=== PATIENT | female | born 1945 | race Hispanic/Latino ===

== ENCOUNTER 2021-11-27 19:29 | Inpatient (IN) | payer MEDICARE ==
[~2021-11-27] VITALS: Ht 165.1 cm; Wt 61.9 kg
[~2021-11-27 19:29] MED LIST: BENAZEPRIL-HCT1 EAC5 PO; TRAMADOL HCL50 M1 PO; Z.0.CLONAZEPAM1 MG PO; Z.0.ENALAPRIL MALEA2 PO; Z.0.OMEPRAZOLE40 MG PO
[2021-11-27 20:20] LABS: BASOPHILS # (AUTO) 0.1 (0.0-0.1); BASOPHILS % 0.7 % (0.0-1.0); EOSINOPHILS % 0.2 % (0.0-6.0); HEMATOCRIT 45.8 % (34.2-44.1); HEMOGLOBIN 15.3 g/dL (12.0-16.0); LYMPHOCYTES % 8.2 % (18.0-39.1); MEAN CORPUSCULAR HEMOGLOBIN 32.4 pg (28-32); MEAN CORPUSCULAR HGB CONC 33.4 g/dL (31-35); MONOCYTES # (AUTO) 0.7 (0.2-0.8); NEUTROPHILS # (AUTO) 10.4 (2.1-6.9); NEUTROPHILS % 84.4 % (38.7-80.0); PLATELET COUNT 218 x10e3/uL (140-360); RED BLOOD COUNT 4.72 x10e6/uL (3.6-5.1); RED CELL DISTRIBUTION WIDTH 12.3 % (11.7-14.4)
[2021-11-27 20:39] LABS: ALANINE AMINOTRANSFERASE 15 IU/L (0-55); ALBUMIN 3.2 g/dL (3.5-5.0); ALBUMIN/GLOBULIN RATIO 0.9 (0.8-2.0); ALKALINE PHOSPHATASE 63 IU/L (40-150); ANION GAP 15.1 mmol/L (8-16); BLOOD UREA NITROGEN 27 mg/dL (7-26); BUN/CREATININE RATIO 13 (6-25); CALCIUM 9.4 mg/dL (8.4-10.2); CARBON DIOXIDE 24 mmol/L (22-29); CHLORIDE 106 mmol/L (98-107); CREATINE KINASE 138 IU/L (29-168); CREATININE, SERUM 2.06 mg/dL (0.57-1.11); EST GLOMERULAR FILTRATION RATE 23 ML/MIN (60-); GLUCOSE 141 mg/dL (74-118); POTASSIUM 3.1 mmol/L (3.5-5.1); SODIUM 142 mmol/L (136-145)
[2021-11-27] MEDS ORDERED: SODIUM CHLORIDE 0.9% 1000ML 1,000 ML IV SCH (22:30)
[2021-11-27] MEDS ORDERED: Morphine 4mg Syringe 4 MG/ML INJ IV PRN (22:30)
[2021-11-27] MEDS: CIPROFLOXACIN 400 MG/D5W 200ML 200 ML IV SCH (23:08)
[2021-11-28] VITALS (11 sets, daily range): BP systolic 136–164; BP diastolic 70–93
[2021-11-28] MEDS: METRONIDAZOLE 500MG/NS 100ML 100 ML IV SCH ×3 (01:07→22:27)
[2021-11-28] MEDS: TRAMADOL HCL 50 MG TAB PO PRN (01:10)
[2021-11-28] MEDS ORDERED: FOSAMAX70 MG PO (02:32)
[2021-11-28] MEDS ORDERED: AMLODIPINE BESY10 MG PO (02:32)
[2021-11-28] MEDS ORDERED: VITAMIN D350 MCG PO (02:32)
[2021-11-28] MEDS ORDERED: NEURONTIN300 MG PO (02:32)
[2021-11-28] MEDS ORDERED: CELEBREX200 MG PO (02:32)
[2021-11-28] MEDS: SOD CHL 0.45%/POT CHL 20MEQ 1,000 ML IV SCH ×3 (02:40→19:28)
[2021-11-28 02:57] LABS: CLARITY,URINE SL CLOUDY (CLEAR); COLOR,URINE YELLOW (YELLOW); KETONES,URINE NEGATIVE (NEGATIVE); LEUKOCYTE ESTERASE ,URINE NEGATIVE (NEGATIVE); NITRITE,URINE NEGATIVE (NEGATIVE); PROTEIN,URINE DIPSTICK 1+ (NEGATIVE); URINE UROBILINOGEN 0.2 mg/dL (0.2 - 1)
[2021-11-28 03:04] LABS: AMORPHOUS SEDIMENT,URINE FEW (FEW); BACTERIA,URINE FEW /HPF; EPITHELIAL CELLS,URINE FEW /LPF; RBC,URINE 0-5 /HPF (0-5); WBC,URINE (MAN) 0-5 /HPF (0-5)
[2021-11-28] MEDS: HYDROCODONE/APAP 5MG-325MG TAB PO PRN ×2 (04:50→20:04)
[2021-11-28 07:16] LABS: BASOPHILS % 0.2 % (0.0-1.0); EOSINOPHILS % 0.1 % (0.0-6.0); HEMATOCRIT 40.6 % (34.2-44.1); HEMOGLOBIN 13.6 g/dL (12.0-16.0); LYMPHOCYTES # (AUTO) 0.9 (1.0-3.2); LYMPHOCYTES % 9.9 % (18.0-39.1); MEAN CORPUSCULAR HEMOGLOBIN 32.5 pg (28-32); MEAN CORPUSCULAR HGB CONC 33.5 g/dL (31-35); MEAN CORPUSCULAR VOLUME 97.1 fL (81-99); MONOCYTES # (AUTO) 0.7 (0.2-0.8); NEUTROPHILS # (AUTO) 7.3 (2.1-6.9); NEUTROPHILS % 81.4 % (38.7-80.0); PLATELET COUNT 175 x10e3/uL (140-360); RED BLOOD COUNT 4.18 x10e6/uL (3.6-5.1); RED CELL DISTRIBUTION WIDTH 12.4 % (11.7-14.4)
[2021-11-28 07:35] LABS: ALBUMIN 2.7 g/dL (3.5-5.0); ALBUMIN/GLOBULIN RATIO 0.9 (0.8-2.0); ANION GAP 12.8 mmol/L (8-16); CALCIUM 8.1 mg/dL (8.4-10.2); CREATININE, SERUM 1.72 mg/dL (0.57-1.11); POTASSIUM 3.8 mmol/L (3.5-5.1)
[2021-11-28 07:50] LABS: CREATINE KINASE 53 IU/L (29-168)
[2021-11-28 08:00] LABS: CREATINE KINASE MB < 1.00 ng/mL (0-4.3)
[2021-11-28] MEDS: CIPROFLOXACIN 400 MG/D5W 200ML 200 ML IV SCH ×2 (09:03→20:00)
[2021-11-28] MEDS: ONDANSETRON HCL INJ 2MG/ML 2ML 2 MG/ML VIAL IV PRN ×2 (10:50→23:25)
[2021-11-28 15:01] LABS: CREATINE KINASE 54 IU/L (29-168)
[2021-11-28] MEDS ORDERED: CITRATE OF MAGNESIA 300ML BOTTLE PO ONE (22:15)
[2021-11-28] MEDS ORDERED: BISACODYL 5 MG TAB EC PO ONE (22:15)
[2021-11-28] MEDS ORDERED: BISACODYL 5 MG TAB EC PO PRN (23:00)
[2021-11-29] VITALS (8 sets, daily range): BP systolic 119–175; BP diastolic 75–100
[2021-11-29] MEDS: SOD CHL 0.45%/POT CHL 20MEQ 1,000 ML IV SCH ×2 (04:58→16:57)
[2021-11-29] MEDS ORDERED: CITRATE OF MAGNESIA 300ML BOTTLE PO ONE (05:00)
[2021-11-29 05:04] LABS: BASOPHILS % 0.3 % (0.0-1.0); HEMATOCRIT 40.1 % (34.2-44.1); HEMOGLOBIN 13.3 g/dL (12.0-16.0); LYMPHOCYTES # (AUTO) 1.1 (1.0-3.2); LYMPHOCYTES % 9.9 % (18.0-39.1); MEAN CORPUSCULAR HEMOGLOBIN 32.7 pg (28-32); MEAN CORPUSCULAR HGB CONC 33.2 g/dL (31-35); MEAN CORPUSCULAR VOLUME 98.5 fL (81-99); MONOCYTES # (AUTO) 0.7 (0.2-0.8); MONOCYTES % 6.7 % (4.4-11.3); NEUTROPHILS # (AUTO) 8.8 (2.1-6.9); NEUTROPHILS % 82.7 % (38.7-80.0); PLATELET COUNT 154 x10e3/uL (140-360); RED BLOOD COUNT 4.07 x10e6/uL (3.6-5.1); RED CELL DISTRIBUTION WIDTH 12.4 % (11.7-14.4)
[2021-11-29 05:37] LABS: ANION GAP 11.6 mmol/L (8-16); CALCIUM 8.2 mg/dL (8.4-10.2); CREATININE, SERUM 1.37 mg/dL (0.57-1.11); POTASSIUM 3.6 mmol/L (3.5-5.1)
[2021-11-29] MEDS: ONDANSETRON HCL INJ 2MG/ML 2ML 2 MG/ML VIAL IV PRN (05:40)
[2021-11-29 06:20] LABS: MAGNESIUM 3.1 MG/DL (1.3-2.1); PHOSPHORUS 2.4 MG/DL (2.3-4.7)
[2021-11-29] MEDS: CIPROFLOXACIN 400 MG/D5W 200ML 200 ML IV SCH ×2 (09:00→21:08)
[2021-11-29] MEDS: METRONIDAZOLE 500MG/NS 100ML 100 ML IV SCH (11:59)
[2021-11-29] MEDS ORDERED: PROPOFOL IV EMULSION 10 MG/ML 20 ML VIAL ONE (17:30)
[2021-11-29] MEDS ORDERED: LIDOCAINE HCL 2% LOCAL INJ 5 ML SDV VIAL INJ ONE (17:30)
[2021-11-29] MEDS ORDERED: HYOSCYAMINE SULFATE 0.5 MG/ML INJ ONE (17:30)
[2021-11-29] MEDS ORDERED: MIDAZOLAM HCL 2 MG/2 ML VIAL ONE (17:48)
[2021-11-29] MEDS ORDERED: FENTANYL CITRATE/PF 100MCG/2 ML INJ ONE (17:48)
[2021-11-29 19:33] LABS: WBC,FECAL (FECAL LACTOFERRIN) POSITIVE (NEGATIVE)
[2021-11-29] MEDS: HYDROCODONE/APAP 5MG-325MG TAB PO PRN (21:09)
[2021-11-30] VITALS (8 sets, daily range): BP systolic 135–189; BP diastolic 65–99
[2021-11-30] MEDS: METRONIDAZOLE 500MG/NS 100ML 100 ML IV SCH ×3 (00:07→23:00)
[2021-11-30] MEDS: CLONAZEPAM 1 MG TAB PO PRN ×2 (00:10→23:00)
[2021-11-30] MEDS: SOD CHL 0.45%/POT CHL 20MEQ 1,000 ML IV SCH ×3 (02:07→20:58)
[2021-11-30] MEDS: ONDANSETRON HCL INJ 2MG/ML 2ML 2 MG/ML VIAL IV PRN (04:37)
[2021-11-30] MEDS: ACETAMINOPHEN 325 MG TAB PO PRN ×2 (04:38→16:13)
[2021-11-30] MEDS: CIPROFLOXACIN 400 MG/D5W 200ML 200 ML IV SCH ×2 (09:00→20:55)
[2021-11-30 14:12] LABS: C DIFFICILE TOXIN A&B AMP PROB NEGATIVE (NEGATIVE)
[2021-11-30] MEDS: TRAMADOL HCL 50 MG TAB PO PRN (16:13)
[2021-11-30] MEDS: METOPROLOL TARTRATE 50 MG TAB PO SCH (17:35)
[2021-11-30] MEDS: HYDRALAZINE HCL 25 MG TAB PO PRN (20:55)
[2021-12-01] VITALS (7 sets, daily range): BP systolic 162–176; BP diastolic 79–94
[2021-12-01] MEDS: HYDRALAZINE HCL 25 MG TAB PO PRN ×3 (00:38→20:31)
[2021-12-01] MEDS: ACETAMINOPHEN 325 MG TAB PO PRN ×2 (03:00→10:15)
[2021-12-01] MEDS: TRAMADOL HCL 50 MG TAB PO PRN ×2 (03:00→11:07)
[2021-12-01] MEDS: METOPROLOL TARTRATE 50 MG TAB PO SCH ×2 (10:15→16:33)
[2021-12-01] MEDS: CIPROFLOXACIN 400 MG/D5W 200ML 200 ML IV SCH ×2 (11:13→20:26)
[2021-12-01] MEDS: SOD CHL 0.45%/POT CHL 20MEQ 1,000 ML IV SCH (11:13)
[2021-12-01] MEDS: METRONIDAZOLE 500MG/NS 100ML 100 ML IV SCH ×2 (12:57)
[2021-12-01] MEDS: SODIUM CHLORIDE 0.9% 1000ML 1,000 ML IV SCH (15:22)
[2021-12-01] MEDS ORDERED: SODIUM CHLORIDE 0.9% 100 ML ONE (16:44)
[2021-12-01] MEDS ORDERED: IOPAMIDOL 370 MG/ML 100 ML INFUS..BTL INJ ONE (16:44)
[2021-12-01] MEDS: HYDROCODONE/APAP 5MG-325MG TAB PO PRN (20:08)
[2021-12-01] MEDS: CLONAZEPAM 1 MG TAB PO PRN (20:26)
[2021-12-02] VITALS: BP 171/89
[2021-12-02] MEDS: TRAMADOL HCL 50 MG TAB PO PRN ×3 (00:23→12:37)
[2021-12-02] MEDS: SODIUM CHLORIDE 0.9% 1000ML 1,000 ML IV SCH ×2 (00:33→05:56)
[2021-12-02] MEDS: ACETAMINOPHEN 325 MG TAB PO PRN ×3 (03:47→19:53)
[2021-12-02 04:00] VITALS: BP 163/88
[2021-12-02 06:43] LABS: BASOPHILS % 0.5 % (0.0-1.0); EOSINOPHILS # (AUTO) 0.1 (0.0-0.4); EOSINOPHILS % 1.4 % (0.0-6.0); HEMATOCRIT 38.8 % (34.2-44.1); HEMOGLOBIN 13.2 g/dL (12.0-16.0); LYMPHOCYTES # (AUTO) 1.4 (1.0-3.2); LYMPHOCYTES % 23.1 % (18.0-39.1); MEAN CORPUSCULAR HEMOGLOBIN 32.4 pg (28-32); MEAN CORPUSCULAR VOLUME 95.3 fL (81-99); MONOCYTES # (AUTO) 0.6 (0.2-0.8); MONOCYTES % 9.9 % (4.4-11.3); NEUTROPHILS # (AUTO) 3.8 (2.1-6.9); NEUTROPHILS % 64.6 % (38.7-80.0); PLATELET COUNT 191 x10e3/uL (140-360); RED BLOOD COUNT 4.07 x10e6/uL (3.6-5.1)
[2021-12-02 07:16] LABS: ALBUMIN 2.9 g/dL (3.5-5.0); ANION GAP 11.6 mmol/L (8-16); CALCIUM 8.5 mg/dL (8.4-10.2); CREATININE, SERUM 0.94 mg/dL (0.57-1.11); POTASSIUM 3.6 mmol/L (3.5-5.1)
[2021-12-02 08:08] VITALS: BP 170/86
[2021-12-02 08:40] VITALS: BP 170/86
[2021-12-02] MEDS: CIPROFLOXACIN 400 MG/D5W 200ML 200 ML IV SCH ×2 (09:32→19:54)
[2021-12-02] MEDS: METOPROLOL TARTRATE 50 MG TAB PO SCH ×2 (09:33→16:13)
[2021-12-02] MEDS: IRON SUCROSE 100 MG in SODIUM CHLORIDE 0.9% 100 ML 100 ML IV SCH (10:00)
[2021-12-02] MEDS: ISOSORBIDE MONONITRATE 30 MG TAB CR PO SCH ×2 (10:56→16:12)
[2021-12-02] MEDS: AMLODIPINE BESYLATE 10 MG TAB PO SCH (10:56)
[2021-12-02] MEDS: METRONIDAZOLE 500MG/NS 100ML 100 ML IV SCH ×2 (12:42→23:00)
[2021-12-02] MEDS: Morphine 4mg Syringe 4 MG/ML INJ IV PRN ×2 (14:16→23:19)
[2021-12-02] MEDS: CLONAZEPAM 1 MG TAB PO PRN ×2 (14:23→19:53)
[2021-12-02 15:58] VITALS: BP 147/80
[2021-12-02] MEDS: PENTOXIFYLLINE 400 MG TAB CR PO SCH (16:13)
[2021-12-02 20:00] VITALS: BP 167/92
[2021-12-02] MEDS: ONDANSETRON HCL INJ 2MG/ML 2ML 2 MG/ML VIAL IV PRN (23:20)
[2021-12-03] MEDS: ACETAMINOPHEN 325 MG TAB PO PRN ×2 (03:22→10:56)
[2021-12-03 04:00] VITALS: BP 151/95
[2021-12-03 08:01] VITALS: BP 147/82
[2021-12-03] MEDS: TRAMADOL HCL 50 MG TAB PO PRN (08:07)
[2021-12-03 08:20] VITALS: BP 147/82
[2021-12-03] MEDS: CIPROFLOXACIN 400 MG/D5W 200ML 200 ML IV SCH (09:04)
[2021-12-03] MEDS: PENTOXIFYLLINE 400 MG TAB CR PO SCH (09:04)
[2021-12-03] MEDS: IRON SUCROSE 100 MG in SODIUM CHLORIDE 0.9% 100 ML 100 ML IV SCH (09:05)
[2021-12-03] MEDS: ISOSORBIDE MONONITRATE 30 MG TAB CR PO SCH (09:05)
[2021-12-03] MEDS: METOPROLOL TARTRATE 50 MG TAB PO SCH (09:06)
[2021-12-03] MEDS: AMLODIPINE BESYLATE 10 MG TAB PO SCH (09:06)
[2021-12-03] MEDS ORDERED: FLAGYL375 MG (11:21)
[2021-12-03] MEDS ORDERED: CIPRO250 MG PO (11:21)
[2021-12-03] MEDS ORDERED: METRONIDAZOLE500 MG PO (11:21)
[2021-12-03] MEDS ORDERED: ONDANSETRON ODT4 MG PO (11:24)
[2021-12-03] MEDS ORDERED: LOPRESSOR25 MG PO (11:24)
[2021-12-03] MEDS ORDERED: PENTOXIFYLLINE400 MG PO (11:25)
[2021-12-03] MEDS ORDERED: ISOSORBIDE MONO30 MG PO (11:26)
[2021-12-03 12:09] VITALS: BP 153/90
== END 2021-12-03 12:30 | disposition home or self-care (01) | DRG 393 ==
LOC: ER 19:33 → ERHOLD 22:43 → MED/SURG3 11-28 00:29 → OBSVTOIN 11-28 10:13
PROVIDERS: ADMIT Internal Medicine; ATTEND Internal Medicine
PROC: 0DBM8ZX Excision of Descending Colon, Via Natural or Artificial Opening Endoscopic, Diagnostic (ICD-10-PCS; principal; 2021-11-29 18:07)
PROC: 0DBN8ZX Excision of Sigmoid Colon, Via Natural or Artificial Opening Endoscopic, Diagnostic (ICD-10-PCS; 2021-11-29 18:07)
DX: K55.1 Chronic vascular disorders of intestine (principal); N17.0 Acute kidney failure with tubular necrosis; K51.511 Left sided colitis with rectal bleeding; E86.0 Dehydration; D50.9 Iron deficiency anemia, unspecified; I16.0 Hypertensive urgency; K83.8 Other specified diseases of biliary tract; M81.0 Age-related osteoporosis without current pathological fracture; E87.6 Hypokalemia; Z90.49 Acquired absence of other specified parts of digestive tract; Z90.3 Acquired absence of stomach [part of]; Z20.822 Contact with and (suspected) exposure to COVID-19
CPT/HCPCS: 36415; 45378; 45380; 70450; 71045; 74174; 74176; 80048; 80053; 81001; 82550; 82553; 82607; 82746; 83540; 83605; 83630; 83735; 83880; 83993; 84100; 84466; 84484; 85025; 87040; 87045; 87177; 87328; 87493; 88305; 88342; 93005; 96361; 99251; 99284; G0378; J1756; J1980; J2001; J2250; J2270; J2405; J3010; J7030; J7050; Q9967; U0002

== ENCOUNTER 2022-08-23 17:30 | Emergency (ER) | payer MEDICARE ==
[~2022-08-23] VITALS: Ht 165.1 cm; Wt 61.7 kg
[~2022-08-23 17:30] MED LIST changes: +AMLODIPINE BESY10 MG PO; +CELEBREX200 MG PO; +CIPRO250 MG PO; +FLAGYL375 MG; +FOSAMAX70 MG PO; +ISOSORBIDE MONO30 MG PO; +LOPRESSOR25 MG PO; +METRONIDAZOLE500 MG PO; +NEURONTIN300 MG PO; +ONDANSETRON ODT4 MG PO; +PENTOXIFYLLINE400 MG PO; +VITAMIN D350 MCG PO
[2022-08-23] MEDS ORDERED: ACETAMINOPHEN 325 MG TAB PO ONE (17:45)
[2022-08-23 18:04] LABS: BASOPHILS % 0.4 % (0.0-1.0); EOSINOPHILS % 0.4 % (0.0-6.0); HEMATOCRIT 43.5 % (34.2-44.1); HEMOGLOBIN 13.3 g/dL (12.0-16.0); LYMPHOCYTES # (AUTO) 0.6 (1.0-3.2); MEAN CORPUSCULAR HGB CONC 30.6 g/dL (31-35); MEAN CORPUSCULAR VOLUME 107.9 fL (81-99); MONOCYTES # (AUTO) 0.3 (0.2-0.8); MONOCYTES % 3.8 % (4.4-11.3); NEUTROPHILS # (AUTO) 6.4 (2.1-6.9); NEUTROPHILS % 87.3 % (38.7-80.0); PLATELET COUNT 185 x10e3/uL (140-360); RED BLOOD COUNT 4.03 x10e6/uL (3.6-5.1); RED CELL DISTRIBUTION WIDTH 15.4 % (11.7-14.4)
[2022-08-23] MEDS ORDERED: SODIUM CHLORIDE 0.9% 1000ML 1,000 ML IV STA (18:06)
[2022-08-23 18:13] LABS: INR 1.04; PROTHROMBIN TIME 13.8 seconds (11.9-14.5)
[2022-08-23 18:14] LABS: PARTIAL THROMBOPLASTIN TIME 29.2 seconds (23.8-35.5)
[2022-08-23 18:20] LABS: ALBUMIN/GLOBULIN RATIO 0.6 (0.8-2.0); ANION GAP 17.8 mmol/L (8-16); CALCIUM 9.7 mg/dL (8.4-10.2); CREATININE, SERUM 1.4 mg/dL (0.57-1.11); POTASSIUM 3.8 mmol/L (3.5-5.1)
[2022-08-23 19:05] LABS: CLARITY,URINE SL CLOUDY (CLEAR); COLOR,URINE YELLOW (YELLOW); KETONES,URINE NEGATIVE (NEGATIVE); LEUKOCYTE ESTERASE ,URINE NEGATIVE (NEGATIVE); NITRITE,URINE POSITIVE (NEGATIVE); PROTEIN,URINE DIPSTICK TRACE (NEGATIVE); URINE UROBILINOGEN 0.2 mg/dL (0.2 - 1)
[2022-08-23 19:07] LABS: BACTERIA,URINE MANY /HPF; RBC,URINE 0-5 /HPF (0-5); WBC,URINE (MAN) 21-50 /HPF (0-5)
[2022-08-23 19:08] LABS: EPITHELIAL CELLS,URINE FEW /LPF
[2022-08-23 19:53] LABS: CREATINE KINASE MB 0.1 ng/mL (0-5.0)
[2022-08-23] MEDS ORDERED: IBUPROFEN 600 MG TAB PO STA (20:40)
[2022-08-23 23:13] VITALS: BP 106/69
== END 2022-08-23 23:00 | disposition home or self-care (01) ==
LOC: ER 18:04
DX: R53.1 Weakness (principal); N39.0 Urinary tract infection, site not specified; R62.7 Adult failure to thrive; Z20.822 Contact with and (suspected) exposure to COVID-19; R94.31 Abnormal electrocardiogram [ECG] [EKG]
CPT/HCPCS: 36415; 71045; 80053; 81001; 82550; 82553; 83605; 84484; 85025; 85610; 85730; 87086; 87186; 93005; 99284; J0696; J2543; J7030; U0002

== ENCOUNTER 2022-11-22 15:06 | Inpatient (IN) | payer MEDICARE ==
[~2022-11-22] VITALS: Ht 165.1 cm; Wt 61.7 kg
[2022-11-22] MEDS ORDERED: ONDANSETRON HCL INJ 2MG/ML 2ML 2 MG/ML VIAL IV STA (15:24)
[2022-11-22] MEDS ORDERED: ONDANSETRON HCL INJ 2MG/ML 2ML 2 MG/ML VIAL ONE (15:27)
[2022-11-22] MEDS ORDERED: LACTATED RINGER'S 1,000 ML ONE (15:27)
[2022-11-22] MEDS ORDERED: LACTATED RINGER'S 1,000 ML IV ONE (15:30)
[2022-11-22 15:38] LABS: BASOPHILS % 0.3 % (0.0-1.0); EOSINOPHILS % 0.2 % (0.0-6.0); HEMATOCRIT 42.8 % (34.2-44.1); HEMOGLOBIN 14.6 g/dL (12.0-16.0); LYMPHOCYTES # (AUTO) 1.9 (1.0-3.2); MEAN CORPUSCULAR HEMOGLOBIN 31.5 pg (28-32); MEAN CORPUSCULAR HGB CONC 34.1 g/dL (31-35); MEAN CORPUSCULAR VOLUME 92.4 fL (81-99); MONOCYTES # (AUTO) 0.4 (0.2-0.8); MONOCYTES % 6.6 % (4.4-11.3); NEUTROPHILS % 62.6 % (38.7-80.0); PLATELET COUNT 176 x10e3/uL (140-360); RED BLOOD COUNT 4.63 x10e6/uL (3.6-5.1); RED CELL DISTRIBUTION WIDTH 14.5 % (11.7-14.4)
[2022-11-22 15:57] LABS: ALBUMIN/GLOBULIN RATIO 1.1 (0.8-2.0); ANION GAP 22.9 mmol/L (8-16); CALCIUM 10.1 mg/dL (8.4-10.2); CREATININE, SERUM 1.63 mg/dL (0.57-1.11); POTASSIUM 3.9 mmol/L (3.5-5.1)
[2022-11-22 16:03] LABS: CREATINE KINASE MB 2.8 ng/mL (0-5.0)
[2022-11-22 16:08] LABS: CLARITY,URINE SL CLOUDY (CLEAR); COLOR,URINE YELLOW (YELLOW); KETONES,URINE 2+ (NEGATIVE); LEUKOCYTE ESTERASE ,URINE NEGATIVE (NEGATIVE); NITRITE,URINE NEGATIVE (NEGATIVE); PROTEIN,URINE DIPSTICK NEGATIVE (NEGATIVE); URINE UROBILINOGEN 0.2 mg/dL (0.2 - 1)
[2022-11-22 16:15] LABS: RBC,URINE 0-5 /HPF (0-5); WBC,URINE (MAN) 0-5 /HPF (0-5)
[2022-11-22 16:16] LABS: BACTERIA,URINE FEW /HPF; EPITHELIAL CELLS,URINE FEW /LPF
[2022-11-22] MEDS ORDERED: ONDANSETRON ODT8 MG PO (16:41)
[2022-11-22] MEDS ORDERED: HYDROCHLOROTHIA25 MG PO (16:41)
[2022-11-22] MEDS ORDERED: ASPIRIN81 MG PO (16:41)
[2022-11-22] MEDS ORDERED: CLONAZEPAM0.5 MG PO (16:41)
[2022-11-22] MEDS ORDERED: DIOVAN160 MG PO (16:41)
[2022-11-22] MEDS ORDERED: HYDRALAZINE HCL 20 MG/ML VIAL IV STA (17:45)
[2022-11-22] MEDS ORDERED: METOPROLOL TARTRATE 50 MG TAB PO ONE (17:45)
[2022-11-22] MEDS ORDERED: ONDANSETRON HCL INJ 2MG/ML 2ML 2 MG/ML VIAL IV PRN (19:15)
[2022-11-22] MEDS ORDERED: SODIUM CHLORIDE 0.9% 1000ML 1,000 ML IV SCH (19:15)
[2022-11-22] MEDS: SODIUM CHLORIDE 0.9% 1000ML 1,000 ML IV SCH (23:45)
[2022-11-22 23:55] VITALS: BP 176/99
[2022-11-23] VITALS (7 sets, daily range): BP systolic 147–177; BP diastolic 74–99
[2022-11-23] MEDS: HYDRALAZINE HCL 20 MG/ML VIAL IV PRN (01:17)
[2022-11-23] MEDS: TRAMADOL HCL 50 MG TAB PO PRN (02:02)
[2022-11-23 06:35] LABS: BASOPHILS % 0.3 % (0.0-1.0); EOSINOPHILS % 0.2 % (0.0-6.0); HEMATOCRIT 38.6 % (34.2-44.1); HEMOGLOBIN 12.9 g/dL (12.0-16.0); LYMPHOCYTES # (AUTO) 1.5 (1.0-3.2); LYMPHOCYTES % 25.9 % (18.0-39.1); MEAN CORPUSCULAR HEMOGLOBIN 31.9 pg (28-32); MEAN CORPUSCULAR HGB CONC 33.4 g/dL (31-35); MEAN CORPUSCULAR VOLUME 95.3 fL (81-99); MONOCYTES # (AUTO) 0.5 (0.2-0.8); MONOCYTES % 8.2 % (4.4-11.3); NEUTROPHILS # (AUTO) 3.8 (2.1-6.9); NEUTROPHILS % 65.2 % (38.7-80.0); PLATELET COUNT 156 x10e3/uL (140-360); RED BLOOD COUNT 4.05 x10e6/uL (3.6-5.1); RED CELL DISTRIBUTION WIDTH 14.8 % (11.7-14.4)
[2022-11-23 07:21] LABS: ANION GAP 19.7 mmol/L (8-16); CALCIUM 8.7 mg/dL (8.4-10.2); CREATININE, SERUM 1.35 mg/dL (0.57-1.11); POTASSIUM 3.7 mmol/L (3.5-5.1)
[2022-11-23] MEDS ORDERED: ONDANSETRON ODT4 MG PO (11:56)
[2022-11-23] MEDS: ONDANSETRON HCL 4 MG ORAL DISINTEGRATING TAB PO SCH ×2 (13:00→17:24)
[2022-11-23] MEDS: METOPROLOL TARTRATE 50 MG TAB PO SCH ×2 (13:12→20:33)
[2022-11-23] MEDS: SODIUM CHLORIDE 0.9% 1000ML 1,000 ML IV SCH (13:13)
[2022-11-23] MEDS: ACETAMINOPHEN 325 MG TAB PO PRN (13:14)
[2022-11-23] MEDS: CLONAZEPAM 0.5 MG TAB PO SCH (20:32)
[2022-11-23] MEDS ORDERED: AMLODIPINE BESYLATE 5 MG TAB PO ONE (21:45)
[2022-11-24] VITALS (7 sets, daily range): BP systolic 145–182; BP diastolic 68–90
[2022-11-24] MEDS: ONDANSETRON HCL 4 MG ORAL DISINTEGRATING TAB PO SCH ×4 (00:58→17:39)
[2022-11-24] MEDS: ACETAMINOPHEN 325 MG TAB PO PRN ×4 (01:00→21:44)
[2022-11-24] MEDS: SODIUM CHLORIDE 0.9% 1000ML 1,000 ML IV SCH (01:01)
[2022-11-24] MEDS: HYDRALAZINE HCL 20 MG/ML VIAL IV PRN (05:52)
[2022-11-24 06:21] LABS: ANION GAP 13.5 mmol/L (8-16); CALCIUM 8.5 mg/dL (8.4-10.2); CREATININE, SERUM 1.17 mg/dL (0.57-1.11); POTASSIUM 3.5 mmol/L (3.5-5.1)
[2022-11-24] MEDS: ASPIRIN 81 MG CHEW TAB PO SCH (08:23)
[2022-11-24] MEDS: METOPROLOL TARTRATE 50 MG TAB PO SCH ×2 (08:24→21:41)
[2022-11-24] MEDS: CHOLECALCIFEROL 1,000 UNIT TAB PO SCH (08:24)
[2022-11-24] MEDS ORDERED: NON-FORMULARY MEDICATION (Cholecalciferol (Vitamin D3) (Vitamin D3) 1 TAB) PO SCH (09:00)
[2022-11-24] MEDS ORDERED: AMLODIPINE BESYLATE 5 MG TAB PO ONE (12:00)
[2022-11-24] MEDS: CLONAZEPAM 0.5 MG TAB PO SCH (21:41)
[2022-11-25] VITALS (10 sets, daily range): BP systolic 115–196; BP diastolic 70–90
[2022-11-25] MEDS: ONDANSETRON HCL 4 MG ORAL DISINTEGRATING TAB PO SCH ×5 (00:42→23:01)
[2022-11-25] MEDS: TRAMADOL HCL 50 MG TAB PO PRN ×3 (00:42→23:02)
[2022-11-25] MEDS: HYDRALAZINE HCL 20 MG/ML VIAL IV PRN ×3 (05:37→22:59)
[2022-11-25] MEDS: CHOLECALCIFEROL 1,000 UNIT TAB PO SCH (08:31)
[2022-11-25] MEDS: METOPROLOL TARTRATE 50 MG TAB PO SCH ×2 (08:32→20:06)
[2022-11-25] MEDS: ASPIRIN 81 MG CHEW TAB PO SCH (08:32)
[2022-11-25] MEDS: ACETAMINOPHEN 325 MG TAB PO PRN (10:50)
[2022-11-25] MEDS: CLONAZEPAM 0.5 MG TAB PO SCH (20:06)
[2022-11-25] MEDS: LOSARTAN POTASSIUM 25 MG TAB PO SCH (20:07)
[2022-11-26] VITALS (8 sets, daily range): BP systolic 131–179; BP diastolic 80–94
[2022-11-26] MEDS: ACETAMINOPHEN 325 MG TAB PO PRN ×2 (03:52→08:37)
[2022-11-26] MEDS: ONDANSETRON HCL 4 MG ORAL DISINTEGRATING TAB PO SCH ×4 (03:53→23:16)
[2022-11-26] MEDS: HYDRALAZINE HCL 20 MG/ML VIAL IV PRN (03:53)
[2022-11-26 06:28] LABS: ANION GAP 12.4 mmol/L (8-16); CALCIUM 8.6 mg/dL (8.4-10.2); CREATININE, SERUM 1.01 mg/dL (0.57-1.11); POTASSIUM 3.4 mmol/L (3.5-5.1)
[2022-11-26] MEDS: ASPIRIN 81 MG CHEW TAB PO SCH (08:31)
[2022-11-26] MEDS: LOSARTAN POTASSIUM 25 MG TAB PO SCH (08:31)
[2022-11-26] MEDS: METOPROLOL TARTRATE 50 MG TAB PO SCH ×2 (08:31→21:05)
[2022-11-26] MEDS: CHOLECALCIFEROL 1,000 UNIT TAB PO SCH (08:31)
[2022-11-26] MEDS: TRAMADOL HCL 50 MG TAB PO PRN ×2 (15:43→23:16)
[2022-11-26] MEDS: CLONAZEPAM 0.5 MG TAB PO SCH (21:05)
[2022-11-27 00:49] VITALS: BP 168/85
[2022-11-27 05:28] VITALS: BP 185/92
[2022-11-27] MEDS: ONDANSETRON HCL 4 MG ORAL DISINTEGRATING TAB PO SCH ×2 (05:32→12:00)
[2022-11-27] MEDS: ACETAMINOPHEN 325 MG TAB PO PRN (05:33)
[2022-11-27 08:29] VITALS: BP 175/94
[2022-11-27] MEDS: CHOLECALCIFEROL 1,000 UNIT TAB PO SCH (08:59)
[2022-11-27] MEDS: LOSARTAN POTASSIUM 25 MG TAB PO SCH (08:59)
[2022-11-27] MEDS: ASPIRIN 81 MG CHEW TAB PO SCH (08:59)
[2022-11-27] MEDS: METOPROLOL TARTRATE 50 MG TAB PO SCH (09:00)
[2022-11-27 09:02] VITALS: BP 175/94
[2022-11-27] MEDS ORDERED: COZAAR25 MG PO (11:10)
[2022-11-27 11:57] VITALS: BP 194/100
[2022-11-27 12:30] VITALS: BP 174/93
== END 2022-11-27 13:25 | disposition home or self-care (01) | DRG 641 ==
LOC: ER 15:29 → ERHOLD 19:03 → MED/SURG3 23:28 → OBSVTOIN 11-24 11:49
PROVIDERS: ADMIT Internal Medicine; ATTEND Internal Medicine
DX: E86.0 Dehydration (principal); I16.9 Hypertensive crisis, unspecified; N17.9 Acute kidney failure, unspecified
CPT/HCPCS: 36415; 74176; 80048; 80053; 81001; 82550; 82553; 83690; 84484; 85025; 93005; 99284; G0378; J2405; J7030; Q0162

== ENCOUNTER 2023-05-19 14:52 | Inpatient (IN) | payer MEDICARE, OTHER ==
[~2023-05-19] VITALS: Ht 162.6 cm; Wt 67.1 kg
[~2023-05-19 14:52] MED LIST changes: +ASPIRIN81 MG PO; +CIPRO500 MG PO; +CLONAZEPAM0.5 MG PO; +COZAAR25 MG PO; +DIOVAN160 MG PO; +HYDROCHLOROTHIA25 MG PO; +ONDANSETRON ODT8 MG PO; +ROPIVACAINE 0.5% 5 MG/ML 30 ML SDV ONE
[2023-05-19 15:37] LABS: BASOPHILS % 0.7 % (0.0-1.0); EOSINOPHILS # (AUTO) 0.1 (0.0-0.4); EOSINOPHILS % 2.1 % (0.0-6.0); HEMATOCRIT 35.1 % (34.2-44.1); HEMOGLOBIN 11.5 g/dL (12.0-16.0); LYMPHOCYTES # (AUTO) 1.3 (1.0-3.2); MEAN CORPUSCULAR HEMOGLOBIN 29.1 pg (28-32); MEAN CORPUSCULAR HGB CONC 32.8 g/dL (31-35); MEAN CORPUSCULAR VOLUME 88.9 fL (81-99); MONOCYTES # (AUTO) 0.7 (0.2-0.8); MONOCYTES % 13.5 % (4.4-11.3); NEUTROPHILS # (AUTO) 3.1 (2.1-6.9); NEUTROPHILS % 58.5 % (38.7-80.0); PLATELET COUNT 187 x10e3/uL (140-360); RED BLOOD COUNT 3.95 x10e6/uL (3.6-5.1); RED CELL DISTRIBUTION WIDTH 12.4 % (11.7-14.4); WHITE BLOOD COUNT 5.35 x10e3/uL (4.8-10.8)
[2023-05-19 15:52] LABS: INR 1.1; PARTIAL THROMBOPLASTIN TIME 32.2 seconds (23.8-35.5); PROTHROMBIN TIME 14.9 seconds (11.9-14.5)
[2023-05-19 15:59] LABS: ALBUMIN 3.1 g/dL (3.5-5.0); ALBUMIN/GLOBULIN RATIO 0.9 (0.8-2.0); ANION GAP 14.4 mmol/L (8-16); CALCIUM 9.2 mg/dL (8.4-10.2); CREATININE, SERUM 1.46 mg/dL (0.57-1.11); POTASSIUM 3.4 mmol/L (3.5-5.1)
[2023-05-19 16:09] LABS: CLARITY,URINE HAZY (CLEAR); COLOR,URINE YELLOW (YELLOW)
[2023-05-19 16:10] LABS: KETONES,URINE NEGATIVE (NEGATIVE); LEUKOCYTE ESTERASE ,URINE TRACE (NEGATIVE); NITRITE,URINE NEGATIVE (NEGATIVE); PROTEIN,URINE DIPSTICK NEGATIVE (NEGATIVE); URINE UROBILINOGEN 0.2 mg/dL (0.2 - 1)
[2023-05-19 16:11] LABS: BACTERIA,URINE FEW /HPF; EPITHELIAL CELLS,URINE FEW /LPF
[2023-05-19 16:12] LABS: AMORPHOUS SEDIMENT,URINE FEW (FEW); HYALINE CASTS 0-1 (0-1)
[2023-05-19] MEDS ORDERED: SODIUM CHLORIDE 0.9% 1000ML 1,000 ML IV STA (16:47)
[2023-05-19] MEDS ORDERED: ONDANSETRON HCL INJ 2MG/ML 2ML 2 MG/ML VIAL IV PRN (17:30)
[2023-05-19] MEDS ORDERED: DIOVAN160 MG PO (18:36)
[2023-05-19] MEDS ORDERED: NEURONTIN300 MG PO (18:36)
[2023-05-19] MEDS ORDERED: MAGOX 400400 MG PO (18:36)
[2023-05-19] MEDS ORDERED: FUROSEMIDE40 MG PO (18:36)
[2023-05-19] MEDS ORDERED: DOXAZOSIN MESYLA2 MG PO (18:36)
[2023-05-19] MEDS ORDERED: METRONIDAZOLE500 MG PO (18:36)
[2023-05-19] MEDS ORDERED: CARVEDILOL12.5 MG PO (18:36)
[2023-05-19 20:00] VITALS: BP 154/87; PULSE 67; RESP 18; TEMP 97.6; O2SAT 100
[2023-05-19 20:49] VITALS: BP 154/87; PULSE 67; RESP 18; TEMP 97.6; O2SAT 97
[2023-05-19] MEDS: SODIUM CHLORIDE 0.9% 1000ML 1,000 ML IV SCH (21:38)
[2023-05-19] MEDS: TRAMADOL HCL 50 MG TAB PO PRN (22:27)
[2023-05-20] VITALS (8 sets, daily range): BP systolic 143–199; BP diastolic 72–98; PULSE 68–87; RESP 17–19; TEMP 98.1–99.9; O2SAT 97–100
[2023-05-20] MEDS ORDERED: DICYCLOMINE HCL 20 MG TAB PO STA (00:03)
[2023-05-20] MEDS: SODIUM CHLORIDE 0.9% 1000ML 1,000 ML IV SCH ×3 (04:46→23:30)
[2023-05-20 05:24] LABS: EOSINOPHILS # (AUTO) 0.1 (0.0-0.4); EOSINOPHILS % 2.6 % (0.0-6.0); HEMATOCRIT 32.4 % (34.2-44.1); HEMOGLOBIN 10.6 g/dL (12.0-16.0); LYMPHOCYTES % 26.7 % (18.0-39.1); MEAN CORPUSCULAR HEMOGLOBIN 29.2 pg (28-32); MEAN CORPUSCULAR HGB CONC 32.7 g/dL (31-35); MEAN CORPUSCULAR VOLUME 89.3 fL (81-99); MONOCYTES # (AUTO) 0.5 (0.2-0.8); MONOCYTES % 13.2 % (4.4-11.3); NEUTROPHILS # (AUTO) 2.2 (2.1-6.9); NEUTROPHILS % 56.5 % (38.7-80.0); PLATELET COUNT 164 x10e3/uL (140-360); RED BLOOD COUNT 3.63 x10e6/uL (3.6-5.1); RED CELL DISTRIBUTION WIDTH 12.2 % (11.7-14.4); WHITE BLOOD COUNT 3.86 x10e3/uL (4.8-10.8)
[2023-05-20 05:50] LABS: ALBUMIN 2.8 g/dL (3.5-5.0); ALBUMIN/GLOBULIN RATIO 0.9 (0.8-2.0); ANION GAP 10.7 mmol/L (8-16); CALCIUM 8.5 mg/dL (8.4-10.2); CREATININE, SERUM 1.14 mg/dL (0.57-1.11); POTASSIUM 3.7 mmol/L (3.5-5.1)
[2023-05-20] MEDS: TRAMADOL HCL 50 MG TAB PO PRN ×2 (06:30→20:17)
[2023-05-20] MEDS: DICYCLOMINE HCL 20 MG TAB PO SCH ×4 (08:08→20:17)
[2023-05-20] MEDS: VALSARTAN 160 MG TAB PO SCH (09:34)
[2023-05-20] MEDS: FUROSEMIDE 40 MG TAB PO SCH (09:35)
[2023-05-20] MEDS: CARVEDILOL 12.5 MG TAB PO SCH ×2 (09:35→16:24)
[2023-05-20] MEDS ORDERED: CHOLECALCIFEROL 1,000 UNIT TAB PO SCH (10:00)
[2023-05-20] MEDS ORDERED: ONDANSETRON HCL 4 MG ORAL DISINTEGRATING TAB PO PRN (12:15)
[2023-05-20] MEDS: HYDRALAZINE HCL 20 MG/ML VIAL IV PRN (14:20)
[2023-05-20] MEDS: GABAPENTIN 300 MG CAP PO SCH ×2 (14:22→20:17)
[2023-05-20] MEDS: CLONAZEPAM 0.5 MG TAB PO PRN (14:24)
[2023-05-20] MEDS: DOXAZOSIN MESYLATE 2 MG TAB PO SCH (16:24)
[2023-05-21] VITALS (9 sets, daily range): BP systolic 141–208; BP diastolic 77–99; PULSE 78–95; RESP 17–19; TEMP 98.1–99.8; O2SAT 96–100
[2023-05-21] MEDS: SODIUM CHLORIDE 0.9% 1000ML 1,000 ML IV SCH (06:04)
[2023-05-21] MEDS: TRAMADOL HCL 50 MG TAB PO PRN ×3 (06:05→21:55)
[2023-05-21] MEDS ORDERED: CEFTRIAXONE 1 GM VIAL ONE (07:53)
[2023-05-21] MEDS: GABAPENTIN 300 MG CAP PO SCH ×3 (08:11→21:54)
[2023-05-21] MEDS: VALSARTAN 160 MG TAB PO SCH (08:11)
[2023-05-21] MEDS: MAGNESIUM OXIDE 400 MG TAB PO SCH (08:12)
[2023-05-21] MEDS: ASPIRIN 81 MG CHEW TAB PO SCH (08:13)
[2023-05-21] MEDS: CHOLECALCIFEROL 1,000 UNIT TAB PO SCH (08:13)
[2023-05-21] MEDS: DICYCLOMINE HCL 20 MG TAB PO SCH ×4 (08:13→21:55)
[2023-05-21] MEDS: CARVEDILOL 12.5 MG TAB PO SCH ×2 (08:13→16:32)
[2023-05-21] MEDS: DOXAZOSIN MESYLATE 2 MG TAB PO SCH ×2 (08:13→16:33)
[2023-05-21] MEDS: FUROSEMIDE 40 MG TAB PO SCH (08:15)
[2023-05-21] MEDS: CLONAZEPAM 0.5 MG TAB PO PRN ×2 (08:22→18:13)
[2023-05-21] MEDS ORDERED: AMLODIPINE BESYLATE 5 MG TAB PO SCH (11:15)
[2023-05-21] MEDS ORDERED: HYDRALAZINE HCL 25 MG TAB PO SCH (15:00)
[2023-05-21] MEDS: HYDRALAZINE HCL 25 MG TAB PO SCH ×2 (15:42→21:55)
[2023-05-21] MEDS: HYDRALAZINE HCL 20 MG/ML VIAL IV PRN (18:13)
[2023-05-22] VITALS (10 sets, daily range): BP systolic 122–169; BP diastolic 68–91; PULSE 82–95; RESP 16–20; TEMP 97.9–101.2; O2SAT 96–100
[2023-05-22] MEDS: TRAMADOL HCL 50 MG TAB PO PRN ×2 (04:34→20:23)
[2023-05-22 06:49] LABS: CHOL/HDL RATIO 4.3 (3.0-3.6)
[2023-05-22] MEDS: HYDROCODONE/APAP 7.5MG-325MG 1 EA TAB PO PRN ×3 (08:33→23:33)
[2023-05-22] MEDS: CARVEDILOL 12.5 MG TAB PO SCH ×2 (08:33→16:40)
[2023-05-22] MEDS: GABAPENTIN 300 MG CAP PO SCH ×3 (08:33→20:19)
[2023-05-22] MEDS: CHOLECALCIFEROL 1,000 UNIT TAB PO SCH (08:34)
[2023-05-22] MEDS: VALSARTAN 160 MG TAB PO SCH (08:34)
[2023-05-22] MEDS: ASPIRIN 81 MG CHEW TAB PO SCH (08:35)
[2023-05-22] MEDS: AMLODIPINE BESYLATE 10 MG TAB PO SCH (08:35)
[2023-05-22] MEDS: DOXAZOSIN MESYLATE 2 MG TAB PO SCH ×3 (08:35→20:19)
[2023-05-22] MEDS: HYDRALAZINE HCL 25 MG TAB PO SCH ×3 (08:35→20:21)
[2023-05-22] MEDS: DICYCLOMINE HCL 20 MG TAB PO SCH ×4 (08:36→20:19)
[2023-05-22] MEDS: MAGNESIUM OXIDE 400 MG TAB PO SCH (08:36)
[2023-05-22] MEDS: FUROSEMIDE 40 MG TAB PO SCH (09:45)
[2023-05-22] MEDS: ACETAMINOPHEN 325 MG TAB PO PRN (17:00)
[2023-05-22 17:20] LABS: BASOPHILS % 0.2 % (0.0-1.0); HEMOGLOBIN 12.1 g/dL (12.0-16.0); LYMPHOCYTES # (AUTO) 0.9 (1.0-3.2); LYMPHOCYTES % 9.8 % (18.0-39.1); MEAN CORPUSCULAR HEMOGLOBIN 29.4 pg (28-32); MEAN CORPUSCULAR HGB CONC 34.6 g/dL (31-35); MEAN CORPUSCULAR VOLUME 85.2 fL (81-99); MONOCYTES # (AUTO) 0.9 (0.2-0.8); MONOCYTES % 9.2 % (4.4-11.3); NEUTROPHILS # (AUTO) 7.6 (2.1-6.9); NEUTROPHILS % 80.6 % (38.7-80.0); PLATELET COUNT 168 x10e3/uL (140-360); RED BLOOD COUNT 4.11 x10e6/uL (3.6-5.1); RED CELL DISTRIBUTION WIDTH 12.2 % (11.7-14.4); WHITE BLOOD COUNT 9.47 x10e3/uL (4.8-10.8)
[2023-05-22 17:38] LABS: ANION GAP 14.2 mmol/L (8-16); CREATININE, SERUM 1.08 mg/dL (0.57-1.11); POTASSIUM 3.2 mmol/L (3.5-5.1)
[2023-05-22] MEDS ORDERED: POTASSIUM CHLORIDE 20 MEQ TAB CR PO ONE (18:15)
[2023-05-23] VITALS (10 sets, daily range): BP systolic 115–154; BP diastolic 62–128; PULSE 79–99; RESP 16–21; TEMP 98.1–101.1; O2SAT 96–99
[2023-05-23] MEDS: ACETAMINOPHEN 325 MG TAB PO PRN ×3 (00:54→21:27)
[2023-05-23] MEDS ORDERED: SODIUM CHLORIDE 0.9% 250ML 250 ML ONE (07:17)
[2023-05-23] MEDS: VALSARTAN 160 MG TAB PO SCH (08:00)
[2023-05-23] MEDS: HYDRALAZINE HCL 25 MG TAB PO SCH ×3 (08:02→21:28)
[2023-05-23] MEDS: DICYCLOMINE HCL 20 MG TAB PO SCH ×4 (08:02→21:28)
[2023-05-23] MEDS: DOXAZOSIN MESYLATE 2 MG TAB PO SCH ×2 (08:03→17:00)
[2023-05-23] MEDS: ASPIRIN 81 MG CHEW TAB PO SCH (08:03)
[2023-05-23] MEDS: GABAPENTIN 300 MG CAP PO SCH ×3 (08:03→21:28)
[2023-05-23] MEDS: AMLODIPINE BESYLATE 10 MG TAB PO SCH (08:03)
[2023-05-23] MEDS: MAGNESIUM OXIDE 400 MG TAB PO SCH (08:05)
[2023-05-23] MEDS: CARVEDILOL 12.5 MG TAB PO SCH ×2 (08:05→17:00)
[2023-05-23] MEDS: FUROSEMIDE 40 MG TAB PO SCH (08:06)
[2023-05-23] MEDS: CHOLECALCIFEROL 1,000 UNIT TAB PO SCH (08:07)
[2023-05-23] MEDS: HYDROCODONE/APAP 7.5MG-325MG 1 EA TAB PO PRN ×3 (11:40→23:45)
[2023-05-23 17:18] LABS: BODY FLUID APPEARANCE CLOUDY; BODY FLUID COLOR YELLOW; BODY FLUID TYPE SYNOVIAL; RBC,BODY FLUID 8000 cells/uL; WBC,BODY FLUID 39278 cells/uL
[2023-05-23 17:29] LABS: GLUCOSE,BODY FLUID 51 mg/dL
[2023-05-23 19:29] LABS: LYMPHOCYTES,BODY FLUID 8 %; MONO/MACROPHG,BODY FLUID 3 %; NEUTROPHILS,BODY FLUID 89 %
[2023-05-24] VITALS (7 sets, daily range): BP systolic 125–143; BP diastolic 68–73; PULSE 77–91; RESP 16–20; TEMP 98.3–100.7; O2SAT 95–99
[2023-05-24] MEDS: SODIUM CHLORIDE 0.9% 1000ML 1,000 ML IV SCH ×2 (04:00→14:00)
[2023-05-24] MEDS: HYDROCODONE/APAP 7.5MG-325MG 1 EA TAB PO PRN (06:06)
[2023-05-24 06:08] LABS: BASOPHILS % 0.5 % (0.0-1.0); EOSINOPHILS % 0.2 % (0.0-6.0); HEMATOCRIT 33.2 % (34.2-44.1); HEMOGLOBIN 11.1 g/dL (12.0-16.0); LYMPHOCYTES # (AUTO) 0.9 (1.0-3.2); LYMPHOCYTES % 13.6 % (18.0-39.1); MEAN CORPUSCULAR HEMOGLOBIN 29.6 pg (28-32); MEAN CORPUSCULAR HGB CONC 33.4 g/dL (31-35); MEAN CORPUSCULAR VOLUME 88.5 fL (81-99); MONOCYTES # (AUTO) 0.5 (0.2-0.8); MONOCYTES % 8.7 % (4.4-11.3); NEUTROPHILS # (AUTO) 4.8 (2.1-6.9); NEUTROPHILS % 76.7 % (38.7-80.0); PLATELET COUNT 162 x10e3/uL (140-360); RED BLOOD COUNT 3.75 x10e6/uL (3.6-5.1); RED CELL DISTRIBUTION WIDTH 12.7 % (11.7-14.4); WHITE BLOOD COUNT 6.23 x10e3/uL (4.8-10.8)
[2023-05-24 06:47] LABS: ANION GAP 13.7 mmol/L (8-16); CALCIUM 8.9 mg/dL (8.4-10.2); CREATININE, SERUM 1.12 mg/dL (0.57-1.11); POTASSIUM 3.7 mmol/L (3.5-5.1)
[2023-05-24 06:49] LABS: INR 1.17; PARTIAL THROMBOPLASTIN TIME 29.5 seconds (23.8-35.5); PROTHROMBIN TIME 15.6 seconds (11.9-14.5)
[2023-05-24] MEDS: GABAPENTIN 300 MG CAP PO SCH ×3 (09:00→21:57)
[2023-05-24] MEDS: CARVEDILOL 12.5 MG TAB PO SCH ×2 (09:00→17:08)
[2023-05-24] MEDS: DICYCLOMINE HCL 20 MG TAB PO SCH ×4 (09:00→21:57)
[2023-05-24] MEDS: HYDRALAZINE HCL 25 MG TAB PO SCH ×3 (09:00→21:58)
[2023-05-24] MEDS: CEFTRIAXONE 2 GM in SODIUM CHLORIDE 0.9% 100 ML IV SCH (09:36)
[2023-05-24] MEDS ORDERED: SUCCINYLCHOLINE CHLORIDE 20 MG/ML 10ML VIAL ONE (12:23)
[2023-05-24] MEDS ORDERED: SEVOFLURANE INHAL SOLN 250 ML PEN BTL ONE (12:23)
[2023-05-24] MEDS ORDERED: DEXAMETHASONE SOD PHOS INJ 4 MG/ML SDV ONE (12:23)
[2023-05-24] MEDS ORDERED: LIDOCAINE HCL 2% LOCAL INJ 5 ML SDV VIAL INJ ONE (12:23)
[2023-05-24] MEDS ORDERED: ONDANSETRON HCL INJ 2MG/ML 2ML 2 MG/ML VIAL ONE (12:23)
[2023-05-24] MEDS ORDERED: PROPOFOL IV EMULSION 10 MG/ML 20 ML VIAL ONE (12:23)
[2023-05-24] MEDS ORDERED: LIDOCAINE 2% /EPINEPHRINE 20 ML SDV INJ ONE (12:29)
[2023-05-24] MEDS ORDERED: BUPIVACAINE HCL 0.5% INJ 30 ML VIAL INJ ONE (12:29)
[2023-05-24] MEDS ORDERED: EPINEPHRINE 1 MG/ML 30ML VIAL ONE (12:29)
[2023-05-24] MEDS ORDERED: ROPIVACAINE 0.5% 5 MG/ML 30 ML SDV ONE (12:35)
[2023-05-24] MEDS ORDERED: EPINEPHRINE HCL 1:1000 1ML 1 MG/ML AMP ONE (12:35)
[2023-05-24] MEDS ORDERED: MIDAZOLAM HCL 2 MG/2 ML VIAL ONE (12:41)
[2023-05-24] MEDS ORDERED: FENTANYL CITRATE/PF 100MCG/2 ML INJ ONE ×3 (13:45→15:14)
[2023-05-24] MEDS ORDERED: Vancomycin IV 0 MG ONE (14:27)
[2023-05-24] MEDS ORDERED: FENTANYL CITRATE/PF 100MCG/2 ML INJ IV ONE ×2 (15:13→15:18)
[2023-05-24] MEDS: VALSARTAN 160 MG TAB PO SCH (16:14)
[2023-05-24] MEDS: CHOLECALCIFEROL 1,000 UNIT TAB PO SCH (16:14)
[2023-05-24] MEDS: ASPIRIN 81 MG CHEW TAB PO SCH (16:14)
[2023-05-24] MEDS: AMLODIPINE BESYLATE 10 MG TAB PO SCH (16:15)
[2023-05-24] MEDS: MAGNESIUM OXIDE 400 MG TAB PO SCH (16:15)
[2023-05-24] MEDS: FUROSEMIDE 40 MG TAB PO SCH (16:17)
[2023-05-24] MEDS: METHYLPREDNISOLONE SOD SUCC 40 MG/ML VIAL 1ML IV SCH (17:07)
[2023-05-24] MEDS: DOXAZOSIN MESYLATE 2 MG TAB PO SCH (17:08)
[2023-05-25] VITALS (8 sets, daily range): BP systolic 114–141; BP diastolic 71–82; PULSE 73–84; RESP 12–20; TEMP 98.2–98.8; O2SAT 96–97
[2023-05-25] MEDS: HYDROCODONE/APAP 7.5MG-325MG 1 EA TAB PO PRN ×4 (01:11→21:34)
[2023-05-25 07:27] LABS: BASOPHILS % 0.2 % (0.0-1.0); HEMATOCRIT 29.7 % (34.2-44.1); HEMOGLOBIN 10.2 g/dL (12.0-16.0); LYMPHOCYTES # (AUTO) 0.4 (1.0-3.2); MEAN CORPUSCULAR HEMOGLOBIN 30.1 pg (28-32); MEAN CORPUSCULAR HGB CONC 34.3 g/dL (31-35); MEAN CORPUSCULAR VOLUME 87.6 fL (81-99); MONOCYTES # (AUTO) 0.3 (0.2-0.8); MONOCYTES % 4.8 % (4.4-11.3); NEUTROPHILS # (AUTO) 5.7 (2.1-6.9); NEUTROPHILS % 88.5 % (38.7-80.0); PLATELET COUNT 204 x10e3/uL (140-360); RED BLOOD COUNT 3.39 x10e6/uL (3.6-5.1); RED CELL DISTRIBUTION WIDTH 12.9 % (11.7-14.4); WHITE BLOOD COUNT 6.47 x10e3/uL (4.8-10.8)
[2023-05-25 07:55] LABS: ANION GAP 14.1 mmol/L (8-16); CALCIUM 8.9 mg/dL (8.4-10.2); CREATININE, SERUM 1.08 mg/dL (0.57-1.11); POTASSIUM 4.1 mmol/L (3.5-5.1)
[2023-05-25] MEDS: MAGNESIUM OXIDE 400 MG TAB PO SCH (09:11)
[2023-05-25] MEDS: CEFTRIAXONE 2 GM in SODIUM CHLORIDE 0.9% 100 ML IV SCH (09:11)
[2023-05-25] MEDS: AMLODIPINE BESYLATE 10 MG TAB PO SCH (09:12)
[2023-05-25] MEDS: CHOLECALCIFEROL 1,000 UNIT TAB PO SCH (09:12)
[2023-05-25] MEDS: DOXAZOSIN MESYLATE 2 MG TAB PO SCH ×2 (09:13→17:05)
[2023-05-25] MEDS: VALSARTAN 160 MG TAB PO SCH (09:13)
[2023-05-25] MEDS: GABAPENTIN 300 MG CAP PO SCH ×3 (09:13→20:34)
[2023-05-25] MEDS: DICYCLOMINE HCL 20 MG TAB PO SCH ×4 (09:14→20:34)
[2023-05-25] MEDS: CARVEDILOL 12.5 MG TAB PO SCH ×2 (09:14→17:06)
[2023-05-25] MEDS: HYDRALAZINE HCL 25 MG TAB PO SCH ×3 (09:14→20:34)
[2023-05-25] MEDS: ASPIRIN 81 MG CHEW TAB PO SCH (09:14)
[2023-05-25] MEDS: FUROSEMIDE 40 MG TAB PO SCH (09:21)
[2023-05-25] MEDS: SODIUM CHLORIDE 0.9% 1000ML 1,000 ML IV SCH ×3 (09:30→20:34)
[2023-05-25] MEDS: METHYLPREDNISOLONE SOD SUCC 40 MG/ML VIAL 1ML IV SCH (17:05)
[2023-05-26] VITALS (9 sets, daily range): BP systolic 117–137; BP diastolic 62–76; PULSE 70–79; RESP 15–20; TEMP 98–98.9; O2SAT 95–98
[2023-05-26] MEDS: SODIUM CHLORIDE 0.9% 1000ML 1,000 ML IV SCH (05:23)
[2023-05-26 06:39] LABS: HEMATOCRIT 27.8 % (34.2-44.1); HEMOGLOBIN 9.5 g/dL (12.0-16.0); LYMPHOCYTES # (AUTO) 0.4 (1.0-3.2); LYMPHOCYTES % 7.8 % (18.0-39.1); MEAN CORPUSCULAR HEMOGLOBIN 30.4 pg (28-32); MEAN CORPUSCULAR HGB CONC 34.2 g/dL (31-35); MEAN CORPUSCULAR VOLUME 89.1 fL (81-99); MONOCYTES # (AUTO) 0.2 (0.2-0.8); MONOCYTES % 4.8 % (4.4-11.3); NEUTROPHILS % 87.2 % (38.7-80.0); PLATELET COUNT 186 x10e3/uL (140-360); RED BLOOD COUNT 3.12 x10e6/uL (3.6-5.1); RED CELL DISTRIBUTION WIDTH 13.2 % (11.7-14.4)
[2023-05-26 06:59] LABS: ANION GAP 12.2 mmol/L (8-16); CALCIUM 8.3 mg/dL (8.4-10.2); CREATININE, SERUM 1.01 mg/dL (0.57-1.11); POTASSIUM 4.2 mmol/L (3.5-5.1)
[2023-05-26] MEDS: AMLODIPINE BESYLATE 10 MG TAB PO SCH (09:06)
[2023-05-26] MEDS: CARVEDILOL 12.5 MG TAB PO SCH ×2 (09:06→17:24)
[2023-05-26] MEDS: DICYCLOMINE HCL 20 MG TAB PO SCH ×4 (09:06→21:39)
[2023-05-26] MEDS: VALSARTAN 160 MG TAB PO SCH (09:07)
[2023-05-26] MEDS: ASPIRIN 81 MG CHEW TAB PO SCH (09:07)
[2023-05-26] MEDS: DOXAZOSIN MESYLATE 2 MG TAB PO SCH ×2 (09:07→17:23)
[2023-05-26] MEDS: CEFTRIAXONE 2 GM in SODIUM CHLORIDE 0.9% 100 ML IV SCH (09:08)
[2023-05-26] MEDS: GABAPENTIN 300 MG CAP PO SCH ×3 (09:08→21:39)
[2023-05-26] MEDS: CHOLECALCIFEROL 1,000 UNIT TAB PO SCH (09:08)
[2023-05-26] MEDS: HYDRALAZINE HCL 25 MG TAB PO SCH ×3 (09:09→21:39)
[2023-05-26] MEDS: FUROSEMIDE 40 MG TAB PO SCH (09:11)
[2023-05-26] MEDS: MAGNESIUM OXIDE 400 MG TAB PO SCH (09:11)
[2023-05-26] MEDS: HYDROCODONE/APAP 7.5MG-325MG 1 EA TAB PO PRN ×3 (10:00→21:39)
[2023-05-26] MEDS: METHYLPREDNISOLONE SOD SUCC 40 MG/ML VIAL 1ML IV SCH (17:23)
[2023-05-27] VITALS (7 sets, daily range): BP systolic 131–165; BP diastolic 69–80; PULSE 66–73; RESP 17–19; TEMP 97.3–98.5; O2SAT 98–100
[2023-05-27] MEDS: HYDROCODONE/APAP 7.5MG-325MG 1 EA TAB PO PRN ×5 (04:07→21:00)
[2023-05-27] MEDS ORDERED: SODIUM CHLORIDE 0.9% 250ML 250 ML ONE (07:47)
[2023-05-27] MEDS: CEFTRIAXONE 2 GM in SODIUM CHLORIDE 0.9% 100 ML IV SCH (08:27)
[2023-05-27] MEDS: HYDRALAZINE HCL 25 MG TAB PO SCH ×3 (08:28→20:59)
[2023-05-27] MEDS: VALSARTAN 160 MG TAB PO SCH (08:28)
[2023-05-27] MEDS: DOXAZOSIN MESYLATE 2 MG TAB PO SCH ×2 (08:29→16:23)
[2023-05-27] MEDS: DICYCLOMINE HCL 20 MG TAB PO SCH ×4 (08:29→20:59)
[2023-05-27] MEDS: MAGNESIUM OXIDE 400 MG TAB PO SCH (08:29)
[2023-05-27] MEDS: ASPIRIN 81 MG CHEW TAB PO SCH (08:29)
[2023-05-27] MEDS: AMLODIPINE BESYLATE 10 MG TAB PO SCH (08:29)
[2023-05-27] MEDS: CHOLECALCIFEROL 1,000 UNIT TAB PO SCH (08:30)
[2023-05-27] MEDS: GABAPENTIN 300 MG CAP PO SCH ×3 (08:30→20:59)
[2023-05-27] MEDS: CARVEDILOL 12.5 MG TAB PO SCH ×2 (08:30→16:24)
[2023-05-27] MEDS: FUROSEMIDE 40 MG TAB PO SCH (12:29)
[2023-05-27] MEDS: METHYLPREDNISOLONE SOD SUCC 40 MG/ML VIAL 1ML IV SCH (16:22)
[2023-05-28] VITALS (8 sets, daily range): BP systolic 130–164; BP diastolic 65–85; PULSE 61–71; RESP 16–18; TEMP 97.8–98.7; O2SAT 98–100
[2023-05-28] MEDS: HYDROCODONE/APAP 7.5MG-325MG 1 EA TAB PO PRN ×3 (03:49→12:36)
[2023-05-28] MEDS: ASPIRIN 81 MG CHEW TAB PO SCH (08:25)
[2023-05-28] MEDS: DICYCLOMINE HCL 20 MG TAB PO SCH ×4 (08:25→20:40)
[2023-05-28] MEDS: GABAPENTIN 300 MG CAP PO SCH ×3 (08:26→20:38)
[2023-05-28] MEDS: FUROSEMIDE 40 MG TAB PO SCH (08:26)
[2023-05-28] MEDS: HYDRALAZINE HCL 25 MG TAB PO SCH ×3 (08:26→20:38)
[2023-05-28] MEDS: VALSARTAN 160 MG TAB PO SCH (08:27)
[2023-05-28] MEDS: AMLODIPINE BESYLATE 10 MG TAB PO SCH (08:27)
[2023-05-28] MEDS: CHOLECALCIFEROL 1,000 UNIT TAB PO SCH (08:27)
[2023-05-28] MEDS: DOXAZOSIN MESYLATE 2 MG TAB PO SCH ×2 (08:27→16:39)
[2023-05-28] MEDS: MAGNESIUM OXIDE 400 MG TAB PO SCH (08:28)
[2023-05-28] MEDS: CARVEDILOL 12.5 MG TAB PO SCH ×2 (08:28→16:40)
[2023-05-28] MEDS: CEFTRIAXONE 2 GM in SODIUM CHLORIDE 0.9% 100 ML IV SCH (08:29)
[2023-05-28] MEDS: METHYLPREDNISOLONE SOD SUCC 40 MG/ML VIAL 1ML IV SCH (16:40)
[2023-05-29 00:24] VITALS: BP 114/64; PULSE 68; RESP 16; TEMP 98.1; O2SAT 98
[2023-05-29 06:24] LABS: HEMATOCRIT 29.8 % (34.2-44.1); HEMOGLOBIN 10.4 g/dL (12.0-16.0); LYMPHOCYTES # (AUTO) 0.4 (1.0-3.2); LYMPHOCYTES % 11.9 % (18.0-39.1); MEAN CORPUSCULAR HEMOGLOBIN 31.5 pg (28-32); MEAN CORPUSCULAR HGB CONC 34.9 g/dL (31-35); MEAN CORPUSCULAR VOLUME 90.3 fL (81-99); MONOCYTES # (AUTO) 0.2 (0.2-0.8); MONOCYTES % 7.1 % (4.4-11.3); NEUTROPHILS # (AUTO) 2.7 (2.1-6.9); NEUTROPHILS % 79.8 % (38.7-80.0); PLATELET COUNT 210 x10e3/uL (140-360); RED CELL DISTRIBUTION WIDTH 13.2 % (11.7-14.4); WHITE BLOOD COUNT 3.36 x10e3/uL (4.8-10.8)
[2023-05-29 06:53] LABS: ALBUMIN 2.6 g/dL (3.5-5.0); ALBUMIN/GLOBULIN RATIO 0.8 (0.8-2.0); CALCIUM 8.9 mg/dL (8.4-10.2); MAGNESIUM 2.4 MG/DL (1.3-2.1)
[2023-05-29 08:22] VITALS: BP 135/72; PULSE 63; RESP 18; TEMP 98.6; O2SAT 99
[2023-05-29] MEDS: ASPIRIN 81 MG CHEW TAB PO SCH (08:33)
[2023-05-29] MEDS: GABAPENTIN 300 MG CAP PO SCH ×2 (08:35→16:59)
[2023-05-29] MEDS: DICYCLOMINE HCL 20 MG TAB PO SCH ×2 (08:36→13:53)
[2023-05-29] MEDS: CHOLECALCIFEROL 1,000 UNIT TAB PO SCH (08:36)
[2023-05-29] MEDS: DOXAZOSIN MESYLATE 2 MG TAB PO SCH ×2 (08:37→16:59)
[2023-05-29] MEDS: HYDRALAZINE HCL 25 MG TAB PO SCH (08:37)
[2023-05-29] MEDS: CARVEDILOL 12.5 MG TAB PO SCH (08:38)
[2023-05-29] MEDS: AMLODIPINE BESYLATE 10 MG TAB PO SCH (08:39)
[2023-05-29] MEDS: VALSARTAN 160 MG TAB PO SCH (08:39)
[2023-05-29] MEDS: MAGNESIUM OXIDE 400 MG TAB PO SCH (08:40)
[2023-05-29] MEDS: CEFTRIAXONE 2 GM in SODIUM CHLORIDE 0.9% 100 ML IV SCH (08:41)
[2023-05-29 09:43] VITALS: BP 135/72; PULSE 63; RESP 18; TEMP 98.6; O2SAT 99
[2023-05-29] MEDS: HYDROCODONE/APAP 7.5MG-325MG 1 EA TAB PO PRN ×2 (09:55→16:58)
[2023-05-29] MEDS: FUROSEMIDE 40 MG TAB PO SCH (09:59)
[2023-05-29 13:00] VITALS: BP 152/80; PULSE 62; RESP 18; TEMP 98.4; O2SAT 99
[2023-05-29] MEDS ORDERED: HYDRALAZINE HCL25 MG PO (16:31)
[2023-05-29] MEDS ORDERED: NORVASC10 MG PO (16:31)
[2023-05-29] MEDS ORDERED: COREG12.5 MG PO (16:31)
[2023-05-29] MEDS ORDERED: MEDROL4 MG PO (16:31)
[2023-05-29] MEDS ORDERED: TYLENOL325 MG PO (16:41)
[2023-05-29 16:43] VITALS: BP 145/70; PULSE 62; RESP 18; TEMP 98.5; O2SAT 99
[2023-05-29 16:59] VITALS: BP 145/70
== END 2023-05-29 17:55 | disposition home or self-care (01) | DRG 988 ==
LOC: ER 15:10 → ERHOLD 17:27 → MED/SURG3 18:18
PROVIDERS: ADMIT Internal Medicine; ATTEND Internal Medicine
PROC: 0R9J3ZX Drainage of Right Shoulder Joint, Percutaneous Approach, Diagnostic (ICD-10-PCS; 2023-05-23)
PROC: 3E1U48Z Irrigation of Joints using Irrigating Substance, Percutaneous Endoscopic Approach (ICD-10-PCS; 2023-05-25)
PROC: 0R9N3ZX Drainage of Right Wrist Joint, Percutaneous Approach, Diagnostic (ICD-10-PCS; 2023-05-25)
PROC: 0MD Bursae and Ligaments, Extraction (ICD-10-PCS; principal; 2023-05-27)
DX: T83.511A Infection and inflammatory reaction due to indwelling urethral catheter, initial encounter (principal); M00.811 Arthritis due to other bacteria, right shoulder; M75.51 Bursitis of right shoulder; N39.0 Urinary tract infection, site not specified; B96.89 Other specified bacterial agents as the cause of diseases classified elsewhere; R53.1 Weakness; M25.431 Effusion, right wrist; E86.0 Dehydration; D64.9 Anemia, unspecified; M75.101 Unspecified rotator cuff tear or rupture of right shoulder, not specified as traumatic; F41.9 Anxiety disorder, unspecified; R33.9 Retention of urine, unspecified; W18.39XA Other fall on same level, initial encounter; Y92.89 Other specified places as the place of occurrence of the external cause; I12.9 Hypertensive chronic kidney disease with stage 1 through stage 4 chronic kidney disease, or unspecified chronic kidney disease; N18.9 Chronic kidney disease, unspecified; Z87.440 Personal history of urinary (tract) infections; Z87.891 Personal history of nicotine dependence; Z96.649 Presence of unspecified artificial hip joint; R42 Dizziness and giddiness; M77.8 Other enthesopathies, not elsewhere classified; R19.7 Diarrhea, unspecified; R29.6 Repeated falls; H35.30 Unspecified macular degeneration; Z20.822 Contact with and (suspected) exposure to COVID-19
CPT/HCPCS: 20610; 36415; 36568; 51700; 70450; 71045; 74176; 74470; 76882; 76942; 80048; 80053; 80061; 81001; 82550; 82945; 83036; 83605; 83630; 83735; 84484; 84550; 85025; 85610; 85730; 86039; 87040; 87045; 87070; 87071; 87075; 87086; 87177; 87205; 87324; 87449; 89051; 89060; 93005; 93306; 96365; 99284; J0171; J0330; J0696; J1100; J2001; J2250; J2405; J2795; J2920; J3370; J7030; J7050; U0002

== ENCOUNTER 2024-08-31 11:24 | Emergency (ER) | payer MEDICARE ==
[~2024-08-31] VITALS: Ht 315 cm; Wt 67.1 kg
[~2024-08-31 11:24] MED LIST changes: +CARVEDILOL12.5 MG PO; +COREG12.5 MG PO; +DOXAZOSIN MESYLA2 MG PO; +FUROSEMIDE40 MG PO; +HYDRALAZINE HCL25 MG PO; +MAGOX 400400 MG PO; +MEDROL4 MG PO; +NORVASC10 MG PO; -ROPIVACAINE 0.5% 5 MG/ML 30 ML SDV ONE; +TYLENOL325 MG PO
[2024-08-31 11:48] VITALS: PULSE 65; RESP 16; TEMP 97.3; O2SAT 99
[2024-08-31] MEDS: SODIUM CHLORIDE 0.9% 1000ML 1,000 ML IV STA (12:50)
[2024-08-31] MEDS: TETANUS/DIPHTHERIA TOX ADULT 0.5 ML SYR IM ONE (12:53)
[2024-08-31 13:22] LABS: BASOPHILS % 0.5 % (0.0-1.0); EOSINOPHILS # (AUTO) 0.2 (0.0-0.4); EOSINOPHILS % 3.7 % (0.0-6.0); HEMATOCRIT 41.6 % (34.2-44.1); HEMOGLOBIN 12.1 g/dL (12.0-16.0); LYMPHOCYTES # (AUTO) 1.5 (1.0-3.2); MEAN CORPUSCULAR HGB CONC 29.1 g/dL (31-35); MEAN CORPUSCULAR VOLUME 96.3 fL (81-99); MONOCYTES # (AUTO) 0.4 (0.2-0.8); MONOCYTES % 8.2 % (4.4-11.3); NEUTROPHILS # (AUTO) 2.3 (2.1-6.9); NEUTROPHILS % 52.6 % (38.7-80.0); PLATELET COUNT 140 x10e3/uL (140-360); RED BLOOD COUNT 4.32 x10e6/uL (3.6-5.1); RED CELL DISTRIBUTION WIDTH 16.7 % (11.7-14.4); WHITE BLOOD COUNT 4.28 x10e3/uL (4.8-10.8)
[2024-08-31 13:27] LABS: INR 0.89; PROTHROMBIN TIME 12.6 seconds (11.9-14.5)
[2024-08-31 13:28] LABS: PARTIAL THROMBOPLASTIN TIME 26.5 seconds (23.8-35.5)
[2024-08-31 13:35] LABS: ALANINE AMINOTRANSFERASE 13 IU/L (0-55); ALBUMIN 3.3 g/dL (3.5-5.0); ALKALINE PHOSPHATASE 48 IU/L (40-150); ANION GAP 14.9 mmol/L (8-16); BILIRUBIN,TOTAL 0.4 mg/dL (0.2-1.2); BLOOD UREA NITROGEN 19 mg/dL (7-26); BUN/CREATININE RATIO 11 (6-25); CALCIUM 9.2 mg/dL (8.4-10.2); CARBON DIOXIDE 21 mmol/L (22-29); CHLORIDE 111 mmol/L (98-107); CREATINE KINASE 27 IU/L (29-168); CREATININE, SERUM 1.67 mg/dL (0.57-1.11); EST GLOMERULAR FILTRATION RATE 31 ML/MIN (>=60); GLUCOSE 102 mg/dL (74-118); MAGNESIUM 2.2 MG/DL (1.3-2.1); POTASSIUM 3.9 mmol/L (3.5-5.1); SODIUM 143 mmol/L (136-145); TOTAL PROTEIN 6.5 g/dL (6.5-8.1)
[2024-08-31 15:02] LABS: TROPONIN I < 0.05 ng/mL (0.0-0.40)
[2024-08-31 15:57] VITALS: BP 119/78
== END 2024-08-31 16:00 | disposition home or self-care (01) ==
LOC: ER 12:08
DX: S60.222A Contusion of left hand, initial encounter (principal); S50.02XA Contusion of left elbow, initial encounter; S80.02XA Contusion of left knee, initial encounter; R55 Syncope and collapse; W01.0XXA Fall on same level from slipping, tripping and stumbling without subsequent striking against object, initial encounter; Y92.89 Other specified places as the place of occurrence of the external cause; I12.9 Hypertensive chronic kidney disease with stage 1 through stage 4 chronic kidney disease, or unspecified chronic kidney disease; N18.9 Chronic kidney disease, unspecified; F41.9 Anxiety disorder, unspecified; R94.31 Abnormal electrocardiogram [ECG] [EKG]
CPT/HCPCS: 36415; 70450; 71045; 72125; 72192; 73030; 73060; 73080; 73562; 80053; 82550; 83735; 83880; 84484; 85025; 85610; 85730; 90714; 93005; 99284; J7030

== ENCOUNTER 2024-12-08 21:04 | Emergency (ER) | payer MEDICARE ==
[~2024-12-08] VITALS: Ht 165.1 cm; Wt 59.0 kg
[2024-12-08 21:11] VITALS: TEMP 98.4
[2024-12-08] MEDS: SODIUM CHLORIDE 0.9% 1000ML 1,000 ML IV STA ×2 (21:43→22:54)
[2024-12-08 22:03] LABS: BASOPHILS % 0.4 % (0.0-1.0); EOSINOPHILS # (AUTO) 0.1 (0.0-0.4); EOSINOPHILS % 1.2 % (0.0-6.0); HEMATOCRIT 32.1 % (34.2-44.1); HEMOGLOBIN 10.1 g/dL (12.0-16.0); LYMPHOCYTES % 19.6 % (18.0-39.1); MEAN CORPUSCULAR HEMOGLOBIN 27.3 pg (28-32); MEAN CORPUSCULAR HGB CONC 31.5 g/dL (31-35); MEAN CORPUSCULAR VOLUME 86.8 fL (81-99); MONOCYTES # (AUTO) 0.6 (0.2-0.8); MONOCYTES % 12.4 % (4.4-11.3); NEUTROPHILS # (AUTO) 3.3 (2.1-6.9); PLATELET COUNT 137 x10e3/uL (140-360); RED CELL DISTRIBUTION WIDTH 15.9 % (11.7-14.4); WHITE BLOOD COUNT 5.01 x10e3/uL (4.8-10.8)
[2024-12-08 22:08] LABS: ALBUMIN 2.4 g/dL (3.5-5.0); ALBUMIN/GLOBULIN RATIO 0.6 (0.8-2.0); ANION GAP 14.1 mmol/L (8-16); BILIRUBIN,TOTAL 0.3 mg/dL (0.2-1.2); CALCIUM 8.5 mg/dL (8.4-10.2); CREATININE, SERUM 2.07 mg/dL (0.57-1.11); POTASSIUM 4.1 mmol/L (3.5-5.1); TOTAL PROTEIN 6.1 g/dL (6.5-8.1)
[2024-12-08 22:09] LABS: CLARITY,URINE SL CLOUDY (CLEAR); COLOR,URINE YELLOW (YELLOW)
[2024-12-08 22:10] LABS: BILIRUBIN,URINE NEGATIVE (NEGATIVE); GLUCOSE, URINE NEGATIVE (NEGATIVE); KETONES,URINE NEGATIVE (NEGATIVE); LEUKOCYTE ESTERASE ,URINE SMALL (NEGATIVE); NITRITE,URINE NEGATIVE (NEGATIVE); PH,URINE 5.5 (5 - 7); PROTEIN,URINE DIPSTICK 2+ (NEGATIVE); URINE UROBILINOGEN 1 mg/dL (0.2 - 1)
[2024-12-08 22:14] LABS: TROPONIN I 0.008 ng/mL (0-0.300)
[2024-12-08 22:20] LABS: BACTERIA,URINE MANY /HPF; EPITHELIAL CELLS,URINE FEW /LPF; WBC,URINE (MAN) >50 /HPF (0-5)
[2024-12-08 22:32] LABS: CORONAVIRUS COVID-19 AG NEGATIVE (NEGATIVE); INFLUENZA A AG NEGATIVE (NEGATIVE); INFLUENZA B AG NEGATIVE (NEGATIVE); STREPTOCOCCUS GRP A ANTIGEN NEGATIVE (NEGATIVE)
[2024-12-08 23:21] VITALS: PULSE 68; RESP 17
[2024-12-09] MEDS ORDERED: BACTRIM DS TAB1 EACH PO (00:09)
[2024-12-09 00:54] VITALS: BP 117/73; PULSE 69; RESP 17; TEMP 98.3; O2SAT 98
[2024-12-09 06:02] LABS: EOSINOPHILS % (MANUAL) 1 % (0-7); LYMPHOCYTES % (MANUAL) 12 % (19-48); MONOCYTES % (MANUAL) 8 % (3.4-9.0); NEUTROPHILS % (MANUAL) 78 % (40-74); REACTIVE LYMPHOCYTES 1
[2024-12-09 06:03] LABS: PLATELET ESTIMATE SLIGHTLY DECREASED; PLATELET MORPHOLOGY COMMENT NORMAL
== END 2024-12-09 00:31 | disposition home or self-care (01) ==
LOC: ER 21:17
DX: R53.1 Weakness (principal); N39.0 Urinary tract infection, site not specified; I12.9 Hypertensive chronic kidney disease with stage 1 through stage 4 chronic kidney disease, or unspecified chronic kidney disease; N18.9 Chronic kidney disease, unspecified; F41.9 Anxiety disorder, unspecified; Z11.52 Encounter for screening for COVID-19; R94.31 Abnormal electrocardiogram [ECG] [EKG]; Z87.19 Personal history of other diseases of the digestive system
CPT/HCPCS: 36415; 70450; 71045; 80053; 81001; 82550; 83518; 83690; 83880; 84484; 85025; 87070; 87428; 93005; 99283; J7030

== ENCOUNTER 2024-12-14 18:26 | Emergency (ER) | payer MEDICARE ==
[~2024-12-14] VITALS: Ht 165.1 cm; Wt 60.3 kg
[~2024-12-14 18:26] MED LIST changes: +BACTRIM DS TAB1 EACH PO
[2024-12-14 19:24] LABS: BASOPHILS % 0.7 % (0.0-1.0); EOSINOPHILS # (AUTO) 0.1 (0.0-0.4); EOSINOPHILS % 3.4 % (0.0-6.0); HEMATOCRIT 35.1 % (34.2-44.1); HEMOGLOBIN 10.8 g/dL (12.0-16.0); LYMPHOCYTES # (AUTO) 1.3 (1.0-3.2); LYMPHOCYTES % 30.1 % (18.0-39.1); MEAN CORPUSCULAR HEMOGLOBIN 27.2 pg (28-32); MEAN CORPUSCULAR HGB CONC 30.8 g/dL (31-35); MEAN CORPUSCULAR VOLUME 88.4 fL (81-99); MONOCYTES # (AUTO) 0.3 (0.2-0.8); MONOCYTES % 8.2 % (4.4-11.3); NEUTROPHILS # (AUTO) 2.4 (2.1-6.9); NEUTROPHILS % 57.1 % (38.7-80.0); PLATELET COUNT 211 x10e3/uL (140-360); RED BLOOD COUNT 3.97 x10e6/uL (3.6-5.1); RED CELL DISTRIBUTION WIDTH 15.9 % (11.7-14.4); WHITE BLOOD COUNT 4.15 x10e3/uL (4.8-10.8)
[2024-12-14 19:33] LABS: CLARITY,URINE CLEAR (CLEAR); COLOR,URINE YELLOW (YELLOW); PH,URINE 6 (5 - 7)
[2024-12-14 19:34] LABS: BILIRUBIN,URINE NEGATIVE (NEGATIVE); GLUCOSE, URINE NEGATIVE (NEGATIVE); KETONES,URINE NEGATIVE (NEGATIVE); LEUKOCYTE ESTERASE ,URINE NEGATIVE (NEGATIVE); NITRITE,URINE NEGATIVE (NEGATIVE); PROTEIN,URINE DIPSTICK NEGATIVE (NEGATIVE); URINE UROBILINOGEN 0.2 mg/dL (0.2 - 1)
[2024-12-14 19:52] LABS: EPITHELIAL CELLS,URINE FEW /LPF; RBC,URINE 0-5 /HPF (0-5)
[2024-12-14 19:54] LABS: ALBUMIN/GLOBULIN RATIO 0.9 (0.8-2.0); BILIRUBIN,TOTAL 0.3 mg/dL (0.2-1.2); CALCIUM 9.5 mg/dL (8.4-10.2); CREATININE, SERUM 1.59 mg/dL (0.57-1.11); TOTAL PROTEIN 6.5 g/dL (6.5-8.1)
[2024-12-14] MEDS: NICARDIPINE 20MG/200ML PREMIX 200 ML IV SCH (21:06)
[2024-12-15 01:21] LABS: INR 0.95; PROTHROMBIN TIME 13.3 seconds (11.9-14.5)
[2024-12-15 01:22] LABS: PARTIAL THROMBOPLASTIN TIME 31.1 seconds (23.8-35.5)
[2024-12-15] MEDS: ACETAMINOPHEN 325 MG TAB PO ONE ×2 (01:54→09:43)
[2024-12-15] MEDS ORDERED: SODIUM CHLORIDE 0.9% 250ML 250 ML ONE (04:21)
[2024-12-15 07:00] VITALS: RESP 18
[2024-12-15 07:55] VITALS: PULSE 70
[2024-12-15 13:10] VITALS: BP 113/62
[2024-12-15 13:28] VITALS: PULSE 70; TEMP 98.4; O2SAT 98
== END 2024-12-15 14:01 | disposition other institution (70) ==
LOC: ER 19:46
DX: R41.82 Altered mental status, unspecified (principal); S06.5X0A Traumatic subdural hemorrhage without loss of consciousness, initial encounter; W01.0XXA Fall on same level from slipping, tripping and stumbling without subsequent striking against object, initial encounter; Y93.01 Activity, walking, marching and hiking; Y92.89 Other specified places as the place of occurrence of the external cause; I12.9 Hypertensive chronic kidney disease with stage 1 through stage 4 chronic kidney disease, or unspecified chronic kidney disease; N18.9 Chronic kidney disease, unspecified; G40.909 Epilepsy, unspecified, not intractable, without status epilepticus; F41.9 Anxiety disorder, unspecified; Z79.82 Long term (current) use of aspirin; R94.31 Abnormal electrocardiogram [ECG] [EKG]
CPT/HCPCS: 36415; 51702; 70450; 71045; 80053; 81001; 84484; 85025; 85610; 85730; 86850; 86900; 87086; 93005; 99284; J7050; P9034; 51700